=== PATIENT | female | born 1965 | race Caucasian/White ===

== ENCOUNTER 2019-09-06 22:53 | Emergency (ER) | payer MEDICARE ==
[~2019-09-06] VITALS: Ht 162.6 cm; Wt 154.7 kg
[2019-09-06] MEDS ORDERED: OMEPRAZOLE 20 M20 M1 PO (23:05)
[2019-09-06] MEDS ORDERED: METFORMIN HCL500 M3 PO (23:06)
[2019-09-06] MEDS ORDERED: FLEXERIL PO (23:06)
[2019-09-06] MEDS ORDERED: TRAMADOL 50 MG50 MG PO (23:06)
[2019-09-06] MEDS ORDERED: LIPITOR10 MG PO (23:07)
[2019-09-06] MEDS ORDERED: LYRICA100 MG PO (23:07)
[2019-09-06] MEDS ORDERED: DETROL LA4 MG PO (23:07)
[2019-09-06] MEDS ORDERED: ZIPRASIDONE HCL80 MG PO (23:07)
[2019-09-06] MEDS ORDERED: WELLBUTRIN SR150 M1 PO (23:08)
[2019-09-06] MEDS ORDERED: LAMOTRIGINE250 MG PO (23:09)
[2019-09-06] MEDS ORDERED: BUSPAR30 MG PO (23:09)
[2019-09-06] MEDS ORDERED: BUSPIRONE HCL15 MG PO (23:09)
[2019-09-06] MEDS ORDERED: ADVAIR 500-501 EACH INH (23:10)
[2019-09-06] MEDS ORDERED: VITAMIN B-1100 M2 PO (23:11)
[2019-09-06] MEDS ORDERED: VENTOLIN HFA 1818 GM INH (23:11)
[2019-09-06] MEDS ORDERED: SPIRIVA18 MCG INH (23:11)
[2019-09-06] MEDS ORDERED: IBUPROFEN 200200 M1 PO (23:12)
[2019-09-06] MEDS ORDERED: VITAMIN D-40010 MCG PO (23:12)
[2019-09-06] MEDS ORDERED: VITAMIN C250 M1 PO (23:12)
[2019-09-06] MEDS ORDERED: LEVEMIR100 UNIT/1 SUBQ (23:13)
[2019-09-06 23:32] LABS: HEMATOCRIT 46.3 % (37.0-47.0); MCH 32.9 pg (26.0-34.0); MCHC 34.4 g/dL (28.0-37.0); MCV 95.7 fL (80.0-100.0); MPV 8.6 fl. (7.2-11.1); NUCLEATED RBCS 0 /100WBC; PLATELET COUNT* 211 thou/uL (150-400); RBC 4.84 mil/uL (4.20-5.00); RDW-CV 15.9 % (10.5-14.5); WBC 8.3 thou/uL (4.0-11.0)
[2019-09-06 23:36] LABS: CALCIUM 8.9 mg/dL (8.5-10.1); POTASSIUM 4.3 mmol/L (3.5-5.1)
[2019-09-06 23:41] LABS: ALBUMIN 3.3 g/dL (3.4-5.0); TOTAL BILIRUBIN 0.3 mg/dL (<0.1-1.0); TOTAL PROTEIN 7.5 g/dL (6.4-8.2)
[2019-09-06 23:54] LABS: ALCOHOL 221 mg/dL (<10); SALICYLATE 6.5 mg/dL (2.8-20.0)
[2019-09-07 00:05] LABS: ACETAMINOPHEN < 2 ug/mL (10-30)
[2019-09-07 00:05] LABS: URINE BILIRUBIN NEGATIVE (Negative); URINE BLOOD TRACE (Negative); URINE CLARITY CLEAR; URINE COLOR YELLOW; URINE GLUCOSE-RANDOM TRACE (Negative); URINE KETONES NEGATIVE (Negative); URINE LEUKOCYTES-REFLEX NEGATIVE (Negative); URINE NITRITE-REFLEX NEGATIVE (Negative); URINE PROTEIN NEGATIVE (Negative); URINE SPECIFIC GRAVITY <= 1.005 (1.005-1.030); URINE UROBILINOGEN 0.2 E.U./dl (0.2-1.0)
[2019-09-07 00:11] LABS: AMP/METHAMP Negative (Negative); BARBITURATES Negative (Negative); BENZODIAZEPINES Negative (Negative); COCAINE Negative (Negative); METHADONE Negative (Negative); OPIATES Negative (Negative); PCP Negative (Negative); THC Negative (Negative)
[2019-09-07 01:17] LABS: ABSOLUTE EOSINOPHILS 0.1 thou/uL (0.0-0.7); ABSOLUTE LYMPHOCYTES 2.8 thou/uL (0.8-5.3); ABSOLUTE MONOCYTES 0.3 thou/uL (0.0-1.2); ABSOLUTE NEUTROPHILS 5.1 thou/uL (1.6-8.1)
[2019-09-07 01:18] LABS: GIANT PLATELETS RARE; PLATELET ESTIMATE ADEQUATE
--- NOTE | 2019-09-07 13:29 | EKG ---
[place] [address] ELECTROCARDIOGRAM REPORT Name: HANG PRIDE Room: [facility]#: [id number] Admission: 09/06/19 Attend Phys: Discharge: Date of : 61 Date of Service: 09/07/19 022 Report #: [id number] THIS REPORT FOR: //name// [facility] ED Test Date: 2019-09-07 Test Time: 02:20:56 Pat Name: HANG PRIDE Department: Room: Gender: Soft Work W[employer] Examiner: [facility] : 1965 Requested By: Charissa Fernandez Order Number: [id number] MD: Anmol Ramos Measurements Intervals [place] Rate: 97 P: 50 NV: 206 QRS: 42 QRSD: 98 T: 41 QT: 368 QTc: 468 Interpretive Statements Sinus rhythm Prolonged NV interval Low voltage, precordial leads Anteroseptal infarct, old No previous ECG available for comparison Electronically Signed On 09-07-2019 13:28:00 CDT by Anmol Ramos [email or web address] <ELECTRONICALLY SIGNED> By: Anmol Ramos MD, [facility] 09/07/19 1328 9 9 Anmol Ramos MD, [facility] /EPI
[2019-09-07 18:25] VITALS: BP 156/71
== END 2019-09-07 18:25 | disposition short-term general hospital (02) ==
LOC: M.ERS 22:53
PROVIDERS: Emergency Medicine
DX: S50.812A Abrasion of left forearm, initial encounter (principal); S50.811A Abrasion of right forearm, initial encounter; J44.9 Chronic obstructive pulmonary disease, unspecified; F31.9 Bipolar disorder, unspecified; Z79.899 Other long term (current) drug therapy; Z79.4 Long term (current) use of insulin; Z88.8 Allergy status to other drugs, medicaments and biological substances; X78.8XXA Intentional self-harm by other sharp object, initial encounter; Y93.89 Activity, other specified; Y92.89 Other specified places as the place of occurrence of the external cause; Y99.8 Other external cause status